=== PATIENT | female | born 1980 | race Caucasian/White ===

== ENCOUNTER 2018-02-03 12:21 | Inpatient (IN) | payer OTHER, MEDICAID ==
--- NOTE | 2018-02-03 12:52 | EDM.PDOC ---
<Maddi Tran - Last Filed: 02/03/18 15:18> ED HPI GENERAL MEDICAL PROBLEM - General Chief Complaint: Upper Extremity Injury/Pain Stated Complaint: INJURY TO LT SHOULDER Time Seen by Provider: 02/03/18 12:22 Source of Information: Reports: Patient History Limitations: Reports: No Limitations - History of Present Illness INITIAL COMMENTS - FREE TEXT/NARRATIVE: HISTORY AND PHYSICAL: []37-year-old female presenting with injury to her left shoulder History of Present Illness: []Patient is having ice pack on the back of her left shoulder she fell striking her shoulder on the hitch of the trailer She does state she has a small abrasion on her right ankle really denies hitting her head Review of Systems: As per history of present illness and below otherwise all systems reviewed and negative. Past medical history: As per history of present illness and as reviewed below otherwise noncontributory. Surgical history: As per history of present illness and as reviewed below otherwise noncontributory. Social history: No reported history of drug or alcohol abuse. Family history: As per history of present illness and as reviewed below otherwise noncontributory. Physical exam: Alert and oriented answering questions appropriately in full sentences without any shortness of breath HEENT: Atraumatic, normocehpalic, pupils reactive, negative for conjunctival pallor or scleral icterus, mucous membranes moist, throat clear, neck supple, nontender, trachea midline. Lungs: Clear to auscultation, breath sounds equal bilaterally, chest non tender. Heart: S1S2, regular, negative for clicks, rubs, or JVD. Abdomen: Soft, nondistended, nontender. Negative for masses or hepatossplenmegaly. Negative for costovertebral tenderness. Pelvis: Stable nontender. Genitourinary: Deferred. Rectal: Deferred Extremities: Atraumatic injury from fall to left shoulder, no gross abnormality , negative for cords or calf pain. She has difficulty raising her arm with pain to the posterior left shoulder radiating to her back. Hand grasp elbow and wrist moving well Neurovascular unremarkable. Neuro: Awake, alert, oriented. Cranial nerves II through XII unremarkable. Cerebellum unremarkable. Motor and sensory unremarkable throughout. Exam nonfocal. Discussed the patient with the patient that the chest x-ray does show a pneumothorax 6.[address] Chery who is the surgeon web communications specialist and will come in and see her. Dr. Sanabria is here has consulted Dr. Mcelroy for placement of the chest tube. Diagnostics: []X-ray left shoulder/chest x-ray Therapeutics: []Toradol IM Morphine 2 mg Impression: []Traumatic Pneumothorax Plan: []Admit per Dr. Sanabria to [facility] Dr. Sanabria has contacted Dr. Mcelroy for placement of chest tube Definitive disposition and diagnosis as appropriate pending reevaluation and review of above. Onset: Today, Sudden Duration: Hour(s): Location: Reports: Upper Extremity, Left Quality: Reports: Throbbing Severity: Severe Improves with: Reports: None Associated Symptoms: Reports: No Other Symptoms Left Shoulder Pain Score (Numeric/FACES): 10 - Related Data Allergies Allergy/AdvReac Type Severity Reaction Status Date / Time No Known Allergies Allergy Verified 02/03/18 12:33 Home Meds: Home Meds Sertraline HCl [Zoloft] 200 mg PO DAILY 02/03/18 [History] levETIRAcetam [Keppra Xr] 750 mg PO BID 02/03/18 [History] Past Medical History Neurological History: Reports: Seizure Psychiatric History: Reports: Depression - Infectious Disease History Infectious Disease History: Reports: Chicken Pox Social & Family History - Family History Family Medical History: Noncontributory - Tobacco Use Smoking Status *Q: Former Smoker Used Tobacco, but Quit: Yes Month/Year Tobacco Last Used: 08/2014 - Caffeine Use Caffeine Use: Reports: Coffee, Soda, Tea - Recreational Drug Use Recreational Drug Use: No Review of Systems - Review of Systems Review Of Systems: ROS reveals no pertinent complaints other than HPI. ED EXAM, GENERAL - Physical Exam Exam: See Below (See dictation) Course - Vital Signs Last Recorded V/S: Last Vital Signs Temp 35.9 C 02/03/18 12:35 Pulse 88 02/03/18 15:34 Resp 18 02/03/18 15:34 BP 137/89 02/03/18 15:34 Pulse Ox 99 02/03/18 15:34 - Orders/Labs/Meds Orders: Active Orders 24 hr Category Date Time Status CULTURE URINE [RM] Stat Lab 02/03/18 13:24 Ordered DRUG SCREEN, URINE [URCHEM] Stat Lab 02/03/18 13:24 Ordered UA W/MICROSCOPIC [URIN] Stat Lab 02/03/18 13:24 Ordered Sodium Chloride 0.9% [Saline Flush] Med 02/03/18 13:24 Active 10 ml FLUSH ASDIRECTED PRN Sodium Chloride 0.9% [Saline Flush] Med 02/03/18 13:24 Active 2.5 ml FLUSH ASDIRECTED PRN Saline Lock Insert [OM.PC] Stat Oth 02/03/18 13:24 Ordered Medication Orders Hydromorphone HCl (Dilaudid) 2 mg PO Q6H PRN PRN Reason: Breakthrough Pain Oxycodone/Acetaminophen (Percocet 325-7.5 Mg) 1 tab PO Q6H PRN PRN Reason: Pain Sodium Chloride (Saline Flush) 10 ml FLUSH ASDIRECTED PRN PRN Reason: Keep Vein Open Last Admin: 02/03/18 13:46 Dose: 10 ml Sodium Chloride (Saline Flush) 2.5 ml FLUSH ASDIRECTED PRN PRN Reason: Keep Vein Open Last Admin: 02/03/18 13:46 Dose: 2.5 ml Labs: Laboratory Tests 02/03/18 02/03/18 02/03/18 Range/Units 13:25 13:25 13:25 WBC 9.19 (4.0-11.0) K/uL RBC 4.78 (4.30-5.90) M/uL Hgb 13.7 (12.0-16.0) g/dL Hct 41.5 (36.0-46.0) % MCV 86.8 (80.0-98.0) fL MCH 28.7 (27.0-32.0) pg MCHC 33.0 (31.0-37.0) g/dL RDW Std Deviation 41.2 (28.0-62.0) fl RDW Coeff of Laura 13 (11.0-15.0) % Plt Count 249 (150-400) K/uL MPV 11.60 (7.40-12.00) fL Neut % (Auto) 82.9 H (48.0-80.0) % Lymph % (Auto) 11.4 L (16.0-40.0) % [place] % (Auto) 5.1 (0.0-15.0) % Eos % (Auto) 0.4 (0.0-7.0) % Baso % (Auto) 0.2 (0.0-1.5) % Neut # (Auto) 7.6 H (1.4-5.7) K/uL Lymph # (Auto) 1.1 (0.6-2.4) K/uL [place] # (Auto) 0.5 (0.0-0.8) K/uL Eos # (Auto) 0.0 (0.0-0.7) K/uL Baso # (Auto) 0.0 (0.0-0.1) K/uL Nucleated RBC % 0.0 /100WBC Nucleated RBCs # 0 K/uL INR 1.03 Sodium 141 (136-145) mmol/L Potassium 3.5 (3.5-5.1) mmol/L Chloride 105 (98-107) mmol/L Carbon Dioxide 26.5 (21.0-32.0) mmol/L BUN 14 (7.0-18.0) mg/dL Creatinine 0.8 (0.6-1.0) mg/dL Est Cr Clr Drug Dosing 86.64 mL/min Estimated GFR (MDRD) > 60.0 ml/min Glucose 143 H (74-106) mg/dL Calcium 9.0 (8.5-10.1) mg/dL Total Bilirubin 0.8 (0.2-1.0) mg/dL AST 33 (15-37) IU/L ALT 53 (14-63) IU/L Alkaline Phosphatase 70 (46-116) U/L Total Protein 7.6 (6.4-8.2) g/dL Albumin 3.8 (3.4-5.0) g/dL Globulin 3.8 H (2.0-3.5) g/dL Albumin/Globulin Ratio 1.0 L (1.3-2.8) Meds: Medications Generic Name Dose Route Start Last Admin Trade Name Freq PRN Reason Stop Dose Admin Hydromorphone HCl 2 mg 02/03/18 15:38 Dilaudid PO Q6H PRN Breakthrough Pain Oxycodone/Acetaminophen 1 tab 02/03/18 15:39 Percocet 325-7.5 Mg PO Q6H PRN Pain Sodium Chloride 10 ml 02/03/18 13:24 02/03/18 13:46 Saline Flush FLUSH 10 ml ASDIRECTED PRN Administration Keep Vein Open Sodium Chloride 2.5 ml 02/03/18 13:24 02/03/18 13:46 Saline Flush FLUSH 2.5 ml ASDIRECTED PRN Administration Keep Vein Open Discontinued Medications Generic Name Dose Route Start Last Admin Trade Name Sumitq PRN Reason Stop Dose Admin Sodium Chloride 1,000 mls @ 999 mls/hr 02/03/18 13:25 02/03/18 13:46 Normal Saline IV 02/03/18 14:25 999 mls/hr STAT ONE Administration Lidocaine/Epinephrine Confirm 02/03/18 15:02 02/03/18 15:18 Xylocaine 1% With Epinephrine 1:100,000 Administered 02/03/18 15:03 Not Given Dose 20 ml .ROUTE .STK-MED ONE Morphine Sulfate 2 mg 02/03/18 13:25 02/03/18 13:46 Morphine IVPUSH 02/03/18 13:26 2 mg ONETIME ONE Administration Morphine Sulfate 2 mg 02/03/18 14:33 02/03/18 14:47 Morphine IVPUSH 02/03/18 14:34 2 mg ONETIME ONE Administration Ondansetron HCl 4 mg 02/03/18 13:25 02/03/18 13:46 Zofran IVPUSH 02/03/18 13:26 4 mg ONETIME ONE Administration Departure - Departure Time of Disposition: 15:19 Disposition: Admitted As Inpatient 66 Condition: Good Clinical Impression: Pneumothorax Qualifiers: Pneumothorax type: traumatic Encounter type: initial encounter Qualified Code(s ): S27.0XXA - Traumatic pneumothorax, initial encounter - Discharge Information <Radha Wallace - Last Filed: 02/03/18 16:10> ED HPI GENERAL MEDICAL PROBLEM - History of Present Illness INITIAL COMMENTS - FREE TEXT/NARRATIVE: Please add to diagnostics CBC CMP INR.
[2018-02-03] MEDS ORDERED: Sodium Chloride 0.9% 2.5 ML Syringe FLUSH PRN (13:24)
[2018-02-03] MEDS ORDERED: Sodium Chloride 0.9% 10 ML Syringe FLUSH PRN (13:24)
--- NOTE | 2018-02-03 13:24 | CR ---
EXAMINATION: Left shoulder HISTORY: Pain COMPARISON: None TECHNIQUE: 3 views FINDINGS/IMPRESSION: There is a proximal left humerus fracture identified, nondisplaced with a greate r tuberosity avulsion component. There is apparent of callus and periosteal reaction suggesting this is subacute and healing, correlate clinically. The remaining osseous structures and joint spaces appe ar preserved. There is also a small to moderate left pneumothorax measuring 5 cm at the apex a few nondisplaced rib fractures involving the second and third ribs.
[2018-02-03] MEDS ORDERED: Sodium Chloride 0.9% 1,000 ML IV ONE (13:25)
[2018-02-03] MEDS ORDERED: Morphine 2 MG/ML Syringe IVPUSH ONE ×2 (13:25→14:33)
[2018-02-03] MEDS ORDERED: Ondansetron 4 MG/2 ML SDV IVPUSH ONE (13:25)
[2018-02-03 14:13] LABS: CHLORIDE,CL 105 mmol/L (98-107); SODIUM,NA 141 mmol/L (136-145)
--- NOTE | 2018-02-03 14:30 | CR ---
EXAMINATION: Two-view chest (PA and Lateral views). HISTORY: Shortness of breath. FINDINGS: The trachea is midline. The cardiomediastinal silhouette is within normal limits. There is a moderate left-sided pneumothorax measuring 6.6 cm at the apex. Mild left basilar atelectasis. A nondisplaced left anterior lateral second rib fracture. IMPRESSION: 1. Moderate left-sided pneumothorax.
[2018-02-03] MEDS ORDERED: Lidocaine 1% with EPINEPHrine 1:100,000 20 ML MDV ONE (15:02)
--- NOTE | 2018-02-03 15:36 | PCM.SN ---
- Free Text/Narrative Note: pt seen, chart reviewed; trauma ptx L, with BMI of 43, would benefit from pigtail chest tube under image guidence insertion; pt voiced understanding; plan pain management and admitted with daily cxr; cx and h/p dictated, [id number]
[2018-02-03] MEDS ORDERED: HYDROmorphone 2 MG/ML SDV IM ONE (16:19)
[2018-02-03] MEDS ORDERED: HYDROmorphone 2 MG/ML Syringe IVPUSH ONE (16:33)
--- NOTE | 2018-02-03 16:33 | CT ---
EXAMINATION: CT-guided left chest tube placement. HISTORY: Pneumothorax COMPARISON: Chest radiograph from the same day TECHNIQUE: The procedure, risks, and benefits were discussed with the patient. Risks included series bleeding, and infection. An informed consent was obtained. An adequate window is noted between the se cond and third rib spaces anteriorly. The overlying region was sterilely prepped and draped. 1% lidoc louise was administered for local anesthesia. Using CT guidance a 10 [place] pneumothorax tube was advan cortez, once the tube entered the chest cavity the stylette was withdrawn and the tube was further advan cortez. The majority of the air was aspirated and the lung successfully inflated. The catheter was fixed with a 3-0 suture to the skin. The patient tolerated the procedure well. No immediate complications. IMPRESSION: Successful CT-guided left chest tube placement.
[2018-02-03] MEDS: Sodium Chloride 0.9% 1,000 ML IV SCH (16:43)
[2018-02-03] MEDS: Acetaminophen/oxyCODONE 325-7.5 MG Tab PO PRN (20:05)
[2018-02-03] MEDS ORDERED: LEVETIRACETAM 750 MG PO SCH (23:00)
[2018-02-04] MEDS: Sodium Chloride 0.9% 1,000 ML IV SCH ×2 (01:51→10:30)
--- NOTE | 2018-02-04 07:28 | CR ---
EXAM DATE: 02/03/18 PATIENT'S AGE: 37 Patient: IAN ALVARADO Facility: [place], [place] Site . Site : 1980 Study: XRay Chest [id number]/19/2018 4:45:43 PM Ordering Physician: Elly Vang Final Report: HISTORY: Chest tube placement. FINDINGS: AP portable chest radiograph is compared with 03 February 2018 at 1405 hours. There has been interval placement of a small bore chest tube with the tip overlying the left upper lung. There has been re-expansion of the left-sided pneumothorax. No definite pneumothorax is seen. Cardiac silhouette is acceptable size. Pulmonary vasculature is free of cephalization. No pleural effusion. There is deformity of the anterior left 2nd rib question fracture. IMPRESSION: 1. Small bore chest tube in place with re-expansion of the left lung. No pneumothorax is identified. 2. Question left 2nd rib fracture. Dictated by Oriana Albarado MD @ 02/03/2018 4:50:03 PM Dictated by: Oriana Albarado MD @ 02/03/2018 16:50:09 (Electronic Signature) Report Signed by Proxy. MACEY
--- NOTE | 2018-02-04 08:18 | HP ---
DATE OF : 1980 PRIMARY CARE PHYSICIAN: Eh Brown PCP CONCERNING QUESTION: Left pneumothorax trauma. HISTORY OF PRESENT ILLNESS: The patient is a 37-year-old lady, morbidly obese, BMI of 43, sustained a fall 3 hours ago and resulted in severe pain in left back and she came to the emergency room. Chest x-ray shows there is pneumothorax of about 6 cm to the apex. Currently, the patient complains short of breath and denied prior episode. Denied loss of consciousness and the major complaint to her is in fact pain rather than short of breath. PAST MEDICAL HISTORY: Significant for no diabetes, [place], CVA, or hypertension. PAST SURGICAL HISTORY: The patient is a G8, P5, natural vaginal delivery. No . ALLERGIES: Please refer to nursing note for any details. MEDICATIONS: Please refer to nursing note for any details. FAMILY HISTORY: Noncontributory. SOCIAL HISTORY: The patient is a smoker. PHYSICAL EXAMINATION: GENERAL: A very pleasant nice lady, in no acute distress. HEENT: Normocephalic and atraumatic. Sclerae anicteric with very poor dentition, and there is no facial injury and tympanic membrane is intact. Trachea is midline. No cutaneous crepitus. HEART: Regular rate and rhythm. Decreased breath sounds on the left side. ABDOMEN: Pinpoint tenderness in the upper rib cage back to midclavicular area. IMAGING: Chest x-ray, 50% pneumothorax. IMPRESSION: Rib fracture, nondisplaced with moderate size left pneumothorax, will benefit from chest tube placement. Apparently, the patient has fracture in the same place and pain is more concern than shortness of breath and with a body habitus of 43.10 BMI. The patient would benefit from a pigtail chest tube, which is easier for pain management and the patient would then be admitted to telemetry to monitor oxygenation, and we will get a chest x-ray every morning and if the pain management could be problem, may try to institute BEHAVIOR THERAPIST and for the time being, we will try to manage with oral Dilaudid. PLAN: Plan has been discussed with daughter, Moncho, who has agreed to put in the pigtail and please look at procedure note for details. As always, thank you for the kind referral. REINALDO / CHRISTINA /[id number]
--- NOTE | 2018-02-04 08:52 | CR ---
EXAM DATE: 02/03/18 PATIENT'S AGE: 37 Patient: IAN ALVARADO Facility: [place], [place] Site . Site : 1980 Study: XRay Chest [id number]/20/2018 7:35:20 AM Ordering Physician: Elly Vang Final Report: INDICATION: Follow up chest tube placement. TECHNIQUE: Two view chest. COMPARISON: 02/03/2018. IMPRESSION: Anterior stable left chest tube placement no pneumothorax no overall change. Stable heart size. Dictated by Dean Bal MD @ Feb 04 2018 7:39AM (Electronic Signature) Report Signed by Proxy. MACEY
[2018-02-04] MEDS ORDERED: Sertraline 100 MG Tab PO SCH (09:00)
[2018-02-04] MEDS: HYDROmorphone 2 MG Tab PO PRN ×2 (09:24→16:22)
[2018-02-04] MEDS: LEVETIRACETAM 750 MG PO SCH ×2 (12:38→23:00)
[2018-02-04] MEDS: Sertraline 100 MG Tab PO SCH (12:38)
--- NOTE | 2018-02-04 14:00 | PCM.SURGPN ---
- General Info Date of Service: 02/04/18 Functional Status: Reports: Pain Controlled - Review of Systems General: Reports: No Symptoms Cardiovascular: Reports: No Symptoms Gastrointestinal: Reports: No Symptoms - Patient Data Vitals - Most Recent: Last Vital Signs Temp 97.8 F 02/04/18 11:49 Pulse 76 02/04/18 11:49 Resp 16 02/04/18 11:49 BP 116/61 02/04/18 11:49 Pulse Ox 95 02/04/18 11:49 Weight - Most Recent: 258 lb 11.2 oz I&O - Last 24 Hours: Intake & Output 02/03/18 02/04/18 02/04/18 22:59 06:59 14:59 Intake Total 1860 Output Total 525 Balance 1335 Lab Results Last 24 Hrs: Laboratory Results - last 24 hr 02/03/18 02/03/18 02/03/18 Range/Units 13:24 13:25 13:25 WBC 9.19 (4.0-11.0) K/uL RBC 4.78 (4.30-5.90) M/uL Hgb 13.7 (12.0-16.0) g/dL Hct 41.5 (36.0-46.0) % MCV 86.8 (80.0-98.0) fL MCH 28.7 (27.0-32.0) pg MCHC 33.0 (31.0-37.0) g/dL RDW Std Deviation 41.2 (28.0-62.0) fl RDW Coeff of Laura 13 (11.0-15.0) % Plt Count 249 (150-400) K/uL MPV 11.60 (7.40-12.00) fL Neut % (Auto) 82.9 H (48.0-80.0) % Lymph % (Auto) 11.4 L (16.0-40.0) % [place] % (Auto) 5.1 (0.0-15.0) % Eos % (Auto) 0.4 (0.0-7.0) % Baso % (Auto) 0.2 (0.0-1.5) % Neut # (Auto) 7.6 H (1.4-5.7) K/uL Lymph # (Auto) 1.1 (0.6-2.4) K/uL [place]abella # (Auto) 0.5 (0.0-0.8) K/uL Eos # (Auto) 0.0 (0.0-0.7) K/uL Baso # (Auto) 0.0 (0.0-0.1) K/uL Nucleated RBC % 0.0 /100WBC Nucleated RBCs # 0 K/uL INR 1.03 Sodium (136-145) mmol/L Potassium (3.5-5.1) mmol/L Chloride (98-107) mmol/L Carbon Dioxide (21.0-32.0) mmol/L BUN (7.0-18.0) mg/dL Creatinine (0.6-1.0) mg/dL Est Cr Clr Drug Dosing mL/min Estimated GFR (MDRD) ml/min Glucose (74-106) mg/dL Calcium (8.5-10.1) mg/dL Total Bilirubin (0.2-1.0) mg/dL AST (15-37) IU/L ALT (14-63) IU/L Alkaline Phosphatase (46-116) U/L Total Protein (6.4-8.2) g/dL Albumin (3.4-5.0) g/dL Globulin (2.0-3.5) g/dL Albumin/Globulin Ratio (1.3-2.8) Urine Color Urine Appearance Urine pH (5.0-8.0) Ur Specific [place] (1.001-1.035) Urine Protein (NEGATIVE) mg/dL Urine Glucose (UA) (NEGATIVE) mg/dL Urine Ketones (NEGATIVE) mg/dL Urine Occult Blood (NEGATIVE) Urine Nitrite (NEGATIVE) Urine Bilirubin (NEGATIVE) Urine Urobilinogen (<2.0) EU/dL Ur Leukocyte Esterase (NEGATIVE) Urine RBC (0-2/HPF) Urine WBC (0-5/HPF) Ur Epithelial Cells (NONE-FEW) Urine Bacteria (NEGATIVE) Urine Mucus (NONE-MOD) Urine Opiates Screen POSITIVE (NEGATIVE) Ur Oxycodone Screen NEGATIVE (NEGATIVE) Urine Methadone Screen NEGATIVE (NEGATIVE) Ur Barbiturates Screen NEGATIVE (NEGATIVE) Ur Phencyclidine Scrn NEGATIVE (NEGATIVE) Ur Amphetamine Screen NEGATIVE (NEGATIVE) U Methamphetamines Scrn NEGATIVE (NEGATIVE) U Benzodiazepines Scrn NEGATIVE (NEGATIVE) U Cocaine Metab Screen NEGATIVE (NEGATIVE) U Marijuana (THC) Screen NEGATIVE (NEGATIVE) 02/03/18 02/03/18 Range/Units 13:25 20:03 WBC (4.0-11.0) K/uL RBC (4.30-5.90) M/uL Hgb (12.0-16.0) g/dL Hct (36.0-46.0) % MCV (80.0-98.0) fL MCH (27.0-32.0) pg MCHC (31.0-37.0) g/dL RDW Std Deviation (28.0-62.0) fl RDW Coeff of Laura (11.0-15.0) % Plt Count (150-400) K/uL MPV (7.40-12.00) fL Neut % (Auto) (48.0-80.0) % Lymph % (Auto) (16.0-40.0) % [place] % (Auto) (0.0-15.0) % Eos % (Auto) (0.0-7.0) % Baso % (Auto) (0.0-1.5) % Neut # (Auto) (1.4-5.7) K/uL Lymph # (Auto) (0.6-2.4) K/uL [place] # (Auto) (0.0-0.8) K/uL Eos # (Auto) (0.0-0.7) K/uL Baso # (Auto) (0.0-0.1) K/uL Nucleated RBC % /100WBC Nucleated RBCs # K/uL INR Sodium 141 (136-145) mmol/L Potassium 3.5 (3.5-5.1) mmol/L Chloride 105 (98-107) mmol/L Carbon Dioxide 26.5 (21.0-32.0) mmol/L BUN 14 (7.0-18.0) mg/dL Creatinine 0.8 (0.6-1.0) mg/dL Est Cr Clr Drug Dosing 86.64 mL/min Estimated GFR (MDRD) > 60.0 ml/min Glucose 143 H (74-106) mg/dL Calcium 9.0 (8.5-10.1) mg/dL Total Bilirubin 0.8 (0.2-1.0) mg/dL AST 33 (15-37) IU/L ALT 53 (14-63) IU/L Alkaline Phosphatase 70 (46-116) U/L Total Protein 7.6 (6.4-8.2) g/dL Albumin 3.8 (3.4-5.0) g/dL Globulin 3.8 H (2.0-3.5) g/dL Albumin/Globulin Ratio 1.0 L (1.3-2.8) Urine Color YELLOW Urine Appearance CLEAR Urine pH 6.0 (5.0-8.0) Ur Specific [place] >= 1.030 (1.001-1.035) Urine Protein NEGATIVE (NEGATIVE) mg/dL Urine Glucose (UA) NEGATIVE (NEGATIVE) mg/dL Urine Ketones 40 H (NEGATIVE) mg/dL Urine Occult Blood TRACE-INTACT (NEGATIVE) Urine Nitrite NEGATIVE (NEGATIVE) Urine Bilirubin NEGATIVE (NEGATIVE) Urine Urobilinogen 0.2 (<2.0) EU/dL Ur Leukocyte Esterase NEGATIVE (NEGATIVE) Urine RBC 0-1 (0-2/HPF) Urine WBC 0-1 (0-5/HPF) Ur Epithelial Cells OCCASIONAL (NONE-FEW) Urine Bacteria RARE (NEGATIVE) Urine Mucus LIGHT (NONE-MOD) Urine Opiates Screen (NEGATIVE) Ur Oxycodone Screen (NEGATIVE) Urine Methadone Screen (NEGATIVE) Ur Barbiturates Screen (NEGATIVE) Ur Phencyclidine Scrn (NEGATIVE) Ur Amphetamine Screen (NEGATIVE) U Methamphetamines Scrn (NEGATIVE) U Benzodiazepines Scrn (NEGATIVE) U Cocaine Metab Screen (NEGATIVE) U Marijuana (THC) Screen (NEGATIVE) Med Orders - Current: Current Medications Hydromorphone HCl (Dilaudid) 2 mg PO Q6H PRN PRN Reason: Breakthrough Pain Last Admin: 02/04/18 09:24 Dose: 2 mg Oxycodone/Acetaminophen (Percocet 325-7.5 Mg) 1 tab PO Q6H PRN PRN Reason: Pain Last Admin: 02/03/18 20:05 Dose: 1 tab Levetiracetam [ (Keppra Xr] 750mg) 1 each PO 1200,2300 LEXIS Last Admin: 02/04/18 12:38 Dose: 1 each Sertraline HCl (Zoloft) 200 mg PO 1200 LEXIS Last Admin: 02/04/18 12:38 Dose: 200 mg Sodium Chloride (Saline Flush) 10 ml FLUSH ASDIRECTED PRN PRN Reason: Keep Vein Open Last Admin: 02/03/18 13:46 Dose: 10 ml Sodium Chloride (Saline Flush) 2.5 ml FLUSH ASDIRECTED PRN PRN Reason: Keep Vein Open Last Admin: 02/03/18 13:46 Dose: 2.5 ml Discontinued Medications Hydromorphone HCl (Dilaudid) 0.5 mg IVPUSH ONETIME ONE Stop: 02/03/18 16:34 Last Admin: 02/03/18 16:38 Dose: 0.5 mg Sodium Chloride (Normal Saline) 1,000 mls @ 999 mls/hr IV STAT ONE Stop: 02/03/18 14:25 Last Admin: 02/03/18 13:46 Dose: 999 mls/hr Sodium Chloride (Normal Saline) 1,000 mls @ 125 mls/hr IV ASDIRECTED LEXIS Last Admin: 02/04/18 10:30 Dose: 125 mls/hr Lidocaine/Epinephrine (Xylocaine 1% With Epinephrine 1:100,000) Confirm Administered Dose 20 ml .ROUTE .STK-MED ONE Stop: 02/03/18 15:03 Last Admin: 02/03/18 15:18 Dose: Not Given Morphine Sulfate (Morphine) 2 mg IVPUSH ONETIME ONE Stop: 02/03/18 13:26 Last Admin: 02/03/18 13:46 Dose: 2 mg Morphine Sulfate (Morphine) 2 mg IVPUSH ONETIME ONE Stop: 02/03/18 14:34 Last Admin: 02/03/18 14:47 Dose: 2 mg Ondansetron HCl (Zofran) 4 mg IVPUSH ONETIME ONE Stop: 02/03/18 13:26 Last Admin: 02/03/18 13:46 Dose: 4 mg Levetiracetam [ (Keppra Xr] 750mg) 1 each PO BID [facility] Last Admin: 02/04/18 07:49 Dose: Not Given Sertraline HCl (Zoloft) 200 mg PO DAILY [facility] Last Admin: 02/04/18 10:18 Dose: Not Given - Exam Lungs: Clear to Auscultation, Normal Respiratory Effort (ct > no air leak; drainage zero; cxr, no ptx) - Problem List Review Problem List Initiated/Reviewed/Updated: Yes - My Orders Last 24 Hours: Active Orders 24 hr Category Date Time Status Admission Status [Patient Status] [ADT] Stat ADT 02/03/18 15:36 Active Patient Status [ADT] Stat ADT 02/03/18 15:23 Active Chest Tube Management [RC] Q12H Care 02/03/18 19:44 Active Communication Order [RC] ROUTINE Care 02/03/18 15:56 Active Telemetry Monitoring [Cardiac Monitoring] [RC] Q8H Care 02/03/18 15:21 Active Regular Diet [DIET] Diet 02/03/18 Dinner Active Chest 2V [CR] AM Exams 02/05/18 05:11 Ordered Chest 2V [CR] AM Exams 02/06/18 05:11 Ordered CULTURE URINE [RM] Stat Lab 02/03/18 13:24 Ordered DRUG SCREEN, URINE [URCHEM] Stat Lab 02/03/18 13:24 Ordered UA W/MICROSCOPIC [URIN] Stat Lab 02/03/18 20:03 Ordered Acetaminophen/oxyCODONE [Percocet 325-7.5 MG] Med 02/03/18 15:39 Active 1 tab PO Q6H PRN HYDROmorphone [Dilaudid] Med 02/03/18 15:38 Active 2 mg PO Q6H PRN Patient's Own Medication [Ptom] Med 02/04/18 12:00 Active 1 each PO 1200,2300 Sertraline [Zoloft] Med 02/04/18 12:00 Active 200 mg PO 1200 Sodium Chloride 0.9% [Saline Flush] Med 02/03/18 13:24 Active 10 ml FLUSH ASDIRECTED PRN Sodium Chloride 0.9% [Saline Flush] Med 02/03/18 13:24 Active 2.5 ml FLUSH ASDIRECTED PRN Saline Lock Insert [OM.PC] Stat Oth 02/03/18 13:24 Ordered Medication Orders Hydromorphone HCl (Dilaudid) 2 mg PO Q6H PRN PRN Reason: Breakthrough Pain Last Admin: 02/04/18 09:24 Dose: 2 mg Oxycodone/Acetaminophen (Percocet 325-7.5 Mg) 1 tab PO Q6H PRN PRN Reason: Pain Last Admin: 02/03/18 20:05 Dose: 1 tab Levetiracetam [ (Keppra Xr] 750mg) 1 each PO 1200,2300 LEXIS Last Admin: 02/04/18 12:38 Dose: 1 each Sertraline HCl (Zoloft) 200 mg PO 1200 LEXIS Last Admin: 02/04/18 12:38 Dose: 200 mg Sodium Chloride (Saline Flush) 10 ml FLUSH ASDIRECTED PRN PRN Reason: Keep Vein Open Last Admin: 02/03/18 13:46 Dose: 10 ml Sodium Chloride (Saline Flush) 2.5 ml FLUSH ASDIRECTED PRN PRN Reason: Keep Vein Open Last Admin: 02/03/18 13:46 Dose: 2.5 ml - Assessment Assessment (Free Text/Narrative):: Doing well after pigtail chesttube placed by radiology; no co thru out the night ; cxr, lung is up; repeat cxr in the am, if fine, will then possible water seal the next morning X 6 hrs, just stop connect to wall suction, never clamp chest tube; after water seal X 6 hr, cxr again; if lung is up, dc chesttube and home; - Plan Plan (Free Text/Narrative):: Doing well after pigtail chesttube placed by radiology; no co thru out the night ; cxr, lung is up; repeat cxr in the am, if fine, will then possible water seal the next morning X 6 hrs, just stop connect to wall suction, never clamp chest tube; after water seal X 6 hr, cxr again; if lung is up, dc chesttube and home;
[2018-02-05] MEDS: Acetaminophen/oxyCODONE 325-7.5 MG Tab PO PRN (09:43)
--- NOTE | 2018-02-05 10:17 | CR ---
EXAM DATE: 02/03/18 PATIENT'S AGE: 37 Patient: IAN ALVARADO Facility: [place], [place] Site . Site : [id number] Study: XRay Chest [id number]/21/2018 7:23:09 AM Ordering Physician: Elly Vang Final Report: INDICATION: Followup left pneumothorax. COMPARISON: Chest radiograph February 03 and February 04, 2018. TECHNIQUE: Two-view chest. FINDINGS: Chest drainage catheter in the left thorax. No pneumothorax identified. Complete re-expansion of the left lung. No pathology in the right lung. IMPRESSION: 1. No pneumothorax in the left chest. 2. Chest drainage catheter identified in the left side. Dictated by Balaji Lopez MD @ Feb 05 2018 7:32AM (Electronic Signature) Report Signed by Proxy. MACEY
[2018-02-05] MEDS: Sertraline 100 MG Tab PO SCH (12:05)
[2018-02-05] MEDS: LEVETIRACETAM 750 MG PO SCH ×2 (12:06→23:41)
--- NOTE | 2018-02-05 14:55 | PCM.SURGPN ---
- General Info Date of Service: 02/05/18 POD#: 2 Functional Status: Reports: Pain Controlled - Review of Systems General: Reports: No Symptoms HEENT: Reports: No Symptoms Pulmonary: Reports: No Symptoms - Patient Data Vitals - Most Recent: Last Vital Signs Temp 98.9 F 02/05/18 12:00 Pulse 69 02/05/18 12:00 Resp 18 02/05/18 12:00 BP 110/62 02/05/18 12:00 Pulse Ox 94 L 02/05/18 12:00 Weight - Most Recent: 258 lb 11.2 oz I&O - Last 24 Hours: Intake & Output 02/04/18 02/05/18 02/05/18 22:59 06:59 14:59 Intake Total 540 500 Output Total 210 406 Balance 330 94 Florencio Results Last 24 Hrs: Microbiology 02/03/18 13:24 Urine Culture - Final Urine, Clean Catch MIXED JETT >100,000 CFU/ML Med Orders - Current: Current Medications Hydromorphone HCl (Dilaudid) 2 mg PO Q6H PRN PRN Reason: Breakthrough Pain Last Admin: 02/04/18 16:22 Dose: 2 mg Oxycodone/Acetaminophen (Percocet 325-7.5 Mg) 1 tab PO Q6H PRN PRN Reason: Pain Last Admin: 02/05/18 09:43 Dose: 1 tab Levetiracetam [ (Keppra Xr] 750mg) 1 each PO 1200,2300 LEXIS Last Admin: 02/05/18 12:06 Dose: 1 each Sertraline HCl (Zoloft) 200 mg PO 1200 [place] Last Admin: 02/05/18 12:05 Dose: 200 mg Sodium Chloride (Saline Flush) 10 ml FLUSH ASDIRECTED PRN PRN Reason: Keep Vein Open Last Admin: 02/03/18 13:46 Dose: 10 ml Sodium Chloride (Saline Flush) 2.5 ml FLUSH ASDIRECTED PRN PRN Reason: Keep Vein Open Last Admin: 02/03/18 13:46 Dose: 2.5 ml Discontinued Medications Hydromorphone HCl (Dilaudid) 0.5 mg IVPUSH ONETIME ONE Stop: 02/03/18 16:34 Last Admin: 02/03/18 16:38 Dose: 0.5 mg Sodium Chloride (Normal Saline) 1,000 mls @ 999 mls/hr IV STAT ONE Stop: 02/03/18 14:25 Last Admin: 02/03/18 13:46 Dose: 999 mls/hr Sodium Chloride (Normal Saline) 1,000 mls @ 125 mls/hr IV ASDIRECTED [facility] Last Admin: 02/04/18 10:30 Dose: 125 mls/hr Lidocaine/Epinephrine (Xylocaine 1% With Epinephrine 1:100,000) Confirm Administered Dose 20 ml .ROUTE .STK-MED ONE Stop: 02/03/18 15:03 Last Admin: 02/03/18 15:18 Dose: Not Given Morphine Sulfate (Morphine) 2 mg IVPUSH ONETIME ONE Stop: 02/03/18 13:26 Last Admin: 02/03/18 13:46 Dose: 2 mg Morphine Sulfate (Morphine) 2 mg IVPUSH ONETIME ONE Stop: 02/03/18 14:34 Last Admin: 02/03/18 14:47 Dose: 2 mg Ondansetron HCl (Zofran) 4 mg IVPUSH ONETIME ONE Stop: 02/03/18 13:26 Last Admin: 02/03/18 13:46 Dose: 4 mg Levetiracetam [ (Keppra Xr] 750mg) 1 each PO BID [facility] Last Admin: 02/04/18 07:49 Dose: Not Given Sertraline HCl (Zoloft) 200 mg PO DAILY [facility] Last Admin: 02/04/18 10:18 Dose: Not Given - Exam Lungs: Clear to Auscultation (B bs, trachea ml, no cutaneous crepitus; cxr, lung is up) - Problem List Review Problem List Initiated/Reviewed/Updated: Yes - My Orders Last 24 Hours: Active Orders 24 hr Category Date Time Status Chest 2V [CR] AM Exams 02/06/18 05:11 Ordered Medication Orders Hydromorphone HCl (Dilaudid) 2 mg PO Q6H PRN PRN Reason: Breakthrough Pain Last Admin: 02/04/18 16:22 Dose: 2 mg Admin: 02/04/18 09:24 Dose: 2 mg Oxycodone/Acetaminophen (Percocet 325-7.5 Mg) 1 tab PO Q6H PRN PRN Reason: Pain Last Admin: 02/05/18 09:43 Dose: 1 tab Admin: 02/03/18 20:05 Dose: 1 tab Levetiracetam [ (Keppra Xr] 750mg) 1 each PO 1200,2300 [place]IS Last Admin: 02/05/18 12:06 Dose: 1 each Admin: 02/04/18 23:00 Dose: Admin: 02/04/18 12:38 Dose: 1 each Sertraline HCl (Zoloft) 200 mg PO 1200 [place] Last Admin: 02/05/18 12:05 Dose: 200 mg Admin: 02/04/18 12:38 Dose: 200 mg Sodium Chloride (Saline Flush) 10 ml FLUSH ASDIRECTED PRN PRN Reason: Keep Vein Open Last Admin: 02/03/18 13:46 Dose: 10 ml Sodium Chloride (Saline Flush) 2.5 ml FLUSH ASDIRECTED PRN PRN Reason: Keep Vein Open Last Admin: 02/03/18 13:46 Dose: 2.5 ml - Assessment Assessment (Free Text/Narrative):: doing well, cxr lung is up; no airleak; water seal; cxr in morning; if lung is up; home - Plan Plan (Free Text/Narrative):: doing well, cxr lung is up; no airleak; water seal; cxr in morning; if lung is up; home
[2018-02-06] MEDS: Acetaminophen/oxyCODONE 325-7.5 MG Tab PO PRN (07:36)
--- NOTE | 2018-02-06 09:07 | PCM.SURGPN ---
- General Info Date of Service: 02/06/18 Functional Status: Reports: Pain Controlled - Review of Systems Cardiovascular: Reports: No Symptoms Gastrointestinal: Reports: No Symptoms - Patient Data Vitals - Most Recent: Last Vital Signs Temp 98.8 F 02/06/18 04:00 Pulse 77 02/06/18 04:00 Resp 20 02/06/18 04:00 BP 122/69 02/06/18 04:00 Pulse Ox 97 02/06/18 04:00 Weight - Most Recent: 258 lb 11.2 oz I&O - Last 24 Hours: Intake & Output 02/05/18 02/06/18 02/06/18 22:59 06:59 14:59 Intake Total 480 450 Output Total 402 350 Balance 78 100 Florencio Results Last 24 Hrs: Microbiology 02/03/18 13:24 Urine Culture - Final Urine, Clean Catch MIXED JETT >100,000 CFU/ML Med Orders - Current: Current Medications Hydromorphone HCl (Dilaudid) 2 mg PO Q6H PRN PRN Reason: Breakthrough Pain Last Admin: 02/04/18 16:22 Dose: 2 mg Oxycodone/Acetaminophen (Percocet 325-7.5 Mg) 1 tab PO Q6H PRN PRN Reason: Pain Last Admin: 02/06/18 07:36 Dose: 1 tab Levetiracetam [ (Keppra Xr] 750mg) 1 each PO 1200,2300 [place] Last Admin: 02/05/18 23:41 Dose: 1 each Sertraline HCl (Zoloft) 200 mg PO 1200 [place] Last Admin: 02/05/18 12:05 Dose: 200 mg Sodium Chloride (Saline Flush) 10 ml FLUSH ASDIRECTED PRN PRN Reason: Keep Vein Open Last Admin: 02/03/18 13:46 Dose: 10 ml Sodium Chloride (Saline Flush) 2.5 ml FLUSH ASDIRECTED PRN PRN Reason: Keep Vein Open Last Admin: 02/03/18 13:46 Dose: 2.5 ml Discontinued Medications Hydromorphone HCl (Dilaudid) 0.5 mg IVPUSH ONETIME ONE Stop: 02/03/18 16:34 Last Admin: 02/03/18 16:38 Dose: 0.5 mg Sodium Chloride (Normal Saline) 1,000 mls @ 999 mls/hr IV STAT ONE Stop: 02/03/18 14:25 Last Admin: 02/03/18 13:46 Dose: 999 mls/hr Sodium Chloride (Normal Saline) 1,000 mls @ 125 mls/hr IV ASDIRECTED [facility] Last Admin: 02/04/18 10:30 Dose: 125 mls/hr Lidocaine/Epinephrine (Xylocaine 1% With Epinephrine 1:100,000) Confirm Administered Dose 20 ml .ROUTE .STK-MED ONE Stop: 02/03/18 15:03 Last Admin: 02/03/18 15:18 Dose: Not Given Morphine Sulfate (Morphine) 2 mg IVPUSH ONETIME ONE Stop: 02/03/18 13:26 Last Admin: 02/03/18 13:46 Dose: 2 mg Morphine Sulfate (Morphine) 2 mg IVPUSH ONETIME ONE Stop: 02/03/18 14:34 Last Admin: 02/03/18 14:47 Dose: 2 mg Ondansetron HCl (Zofran) 4 mg IVPUSH ONETIME ONE Stop: 02/03/18 13:26 Last Admin: 02/03/18 13:46 Dose: 4 mg Levetiracetam [ (Keppra Xr] 750mg) 1 each PO BID [facility] Last Admin: 02/04/18 07:49 Dose: Not Given Sertraline HCl (Zoloft) 200 mg PO DAILY [facility] Last Admin: 02/04/18 10:18 Dose: Not Given - Exam Lungs: Clear to Auscultation (B BS; CXR, lung is up; will pull tube today and home) - Problem List Review Problem List Initiated/Reviewed/Updated: Yes - My Orders Last 24 Hours: Active Orders 24 hr Category Date Time Status Chest Tube Management [RC] ASDIRECTED Care 02/05/18 14:55 Active Chest 2V [CR] AM Exams 02/06/18 05:11 Taken Medication Orders Hydromorphone HCl (Dilaudid) 2 mg PO Q6H PRN PRN Reason: Breakthrough Pain Last Admin: 02/04/18 16:22 Dose: 2 mg Admin: 02/04/18 09:24 Dose: 2 mg Oxycodone/Acetaminophen (Percocet 325-7.5 Mg) 1 tab PO Q6H PRN PRN Reason: Pain Last Admin: 02/06/18 07:36 Dose: 1 tab Admin: 02/05/18 09:43 Dose: 1 tab Admin: 02/03/18 20:05 Dose: 1 tab Levetiracetam [ (Keppra Xr] 750mg) 1 each PO 1200,2300 [place]IS Last Admin: 02/05/18 23:41 Dose: 1 each Admin: 02/05/18 12:06 Dose: 1 each Admin: 02/04/18 23:00 Dose: Admin: 02/04/18 12:38 Dose: 1 each Sertraline HCl (Zoloft) 200 mg PO 1200 [place] Last Admin: 02/05/18 12:05 Dose: 200 mg Admin: 02/04/18 12:38 Dose: 200 mg Sodium Chloride (Saline Flush) 10 ml FLUSH ASDIRECTED PRN PRN Reason: Keep Vein Open Last Admin: 02/03/18 13:46 Dose: 10 ml Sodium Chloride (Saline Flush) 2.5 ml FLUSH ASDIRECTED PRN PRN Reason: Keep Vein Open Last Admin: 02/03/18 13:46 Dose: 2.5 ml - Assessment Assessment (Free Text/Narrative):: doing well, pull tube, home today - Plan Plan (Free Text/Narrative):: doing well, pull tube, home today
--- NOTE | 2018-02-06 09:55 | CR ---
EXAMINATION: Two-view chest (PA and Lateral views). HISTORY: Follow-up pneumothorax. FINDINGS: The trachea is midline. The cardiomediastinal silhouette is within normal limits. Trace left pleural effusion and basilar atelectasis. No residual pneumothorax identified. Osseous structures appear unremarkable. IMPRESSION: 1. Left-sided chest tube in place without an underlying pneumothorax.
[2018-02-06] MEDS: Sertraline 100 MG Tab PO SCH (11:52)
[2018-02-06] MEDS: LEVETIRACETAM 750 MG PO SCH (11:53)
--- NOTE | 2018-02-06 12:36 | PCM.SN ---
- Free Text/Narrative Note: chest tube dced; pt tolerated procedure well
== END 2018-02-06 13:52 | disposition home or self-care (01) | DRG 200 ==
LOC: MW.ED 12:21 → MW.MS 15:13
PROVIDERS: ADMIT Surgery; ATTEND Surgery
PROC: 0W9B30Z Drainage of Left Pleural Cavity with Drainage Device, Percutaneous Approach (ICD-10-PCS; principal; 2018-02-03)
DX: S27.0XXA Traumatic pneumothorax, initial encounter (principal); Z68.41 Body mass index [BMI] 40.0-44.9, adult; W19.XXXA Unspecified fall, initial encounter; Z79.899 Other long term (current) drug therapy; F32.9 Major depressive disorder, single episode, unspecified; Z87.891 Personal history of nicotine dependence; E66.01 Morbid (severe) obesity due to excess calories
CPT/HCPCS: 32551-LT; 36415; 71045; 71045-26; 71046; 71046-26; 73030-26-LT; 73030-LT; 75989; 75989-26-RT; 80053; 80305; 81001; 85025; 85610; 87086; 96361; 96374; 96375; 96376; 99285-25; A9270-GY; J1170; J2270; J2405; J7040